=== PATIENT | male | born 1965 | race Caucasian/White ===

== ENCOUNTER 2017-05-19 12:02 | Emergency (ER) | payer BC ==
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
[2017-05-19 13:49] LABS: Hematocrit 58.6 % (42.0-52.0); Hemoglobin 20.6 gm/dL (13.5-18.0); Mean Cell Volume 90.9 fl (78-100); Mean Corpuscular Hemoglobin 31.9 pg (27-31); Mean Corpuscular Hgb Conc 35.2 g/dl (32-36); Mean Platelet Volume 11.5 fl (6.0-9.5); Neutrophil # 7.2 K/mm3 (1.3-6.0); Neutrophil % 75.6 % (42-75.0); Platelet Count 179 K/mm3 (150-450); Red Blood Count 6.45 M/mm3 (4.7-6.0); White Blood Count 9.6 K/mm3 (4.0-10.5)
[2017-05-19 13:59] LABS: Prothrombin Time (Patient) 12.7 Seconds (9.4-11.4)
[2017-05-19 14:00] LABS: INR 1.22 INR (0.90-1.10); Partial Thrombolplastin Time 32.9 Seconds (24-32)
[2017-05-19] MEDS ORDERED: NORMAL SALINE 1,000 ML IV ONE (14:00)
[2017-05-19 14:01] LABS: Albumin * 3.9 gm/dl (3.4-5.0); Ca. Corrected For Albumin 9.1 mg/dL (8.4-10.2); Calcium * 9.3 mg/dL (7.9-10.9); Carbon Dioxide 21.3 mmol/L (24-32.6); Total Protein 8.1 gm/dL (6.2-8.2)
[2017-05-19 14:02] LABS: Bilirubin, Total 2.8 mg/dL (0.0-1.1); Potassium 6.3 mmol/L (3.4-4.6)
[2017-05-19 14:37] VITALS: BP 144/82
== END 2017-05-19 13:40 | disposition short-term general hospital (02) ==
LOC: ER 12:02
DX: S06.5X0A Traumatic subdural hemorrhage without loss of consciousness, initial encounter (principal); I61.9 Nontraumatic intracerebral hemorrhage, unspecified; S02.91XA Unspecified fracture of skull, initial encounter for closed fracture; R07.81 Pleurodynia; F17.200 Nicotine dependence, unspecified, uncomplicated; W17.89XA Other fall from one level to another, initial encounter; Y93.89 Activity, other specified; Y92.89 Other specified places as the place of occurrence of the external cause